=== PATIENT | female | born 2005 | race Caucasian/White ===

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

== ENCOUNTER 2024-12-29 15:18 | Observation (INO) | payer OTHER ==
[~2024-12-29] VITALS: Ht 182.9 cm; Wt 88.5 kg
[2024-12-29 15:59] LABS: BASOPHILS ABSOLUTE AUTO 0.05 K/mm3 (0.00-0.23); BASOPHILS PERCENT AUTO 1 % (0-2); EOSINOPHILS ABSOLUTE AUTO 0.17 K/mm3 (0.00-0.68); EOSINOPHILS PERCENT AUTO 2 % (0-6); Hematocrit 37.3 % (33.0-51.0); Hemoglobin 12.5 g/dL (11.5-16.0); IMMATURE GRAN ABSOLUTE AUTO 0.02 K/mm3 (0.00-0.10); IMMATURE GRAN PERCENT AUTO 0 % (0-1); LYMPHOCYTES ABSOLUTE AUTO 2.10 K/mm3 (0.84-5.20); LYMPHOCYTES PERCENT AUTO 22 % (21-46); MONOCYTES ABSOLUTE AUTO 0.79 K/mm3 (0.16-1.47); MONOCYTES PERCENT AUTO 8 % (4-13); Mean Corpuscular HGB Conc 33.5 g/dL (31.5-36.5); Mean Corpuscular Volume 89 fL (80-100); NEUTROPHILS ABSOLUTE AUTO 6.25 K/mm3 (1.96-9.15); NEUTROPHILS PERCENT AUTO 67 % (41-73); NRBC ABSOLUTE 0.00 K/mm3 (0.00-0.02); NRBC Auto 0.0 /100 WBC (0.0-0.2); Platelet Count 345 K/mm3 (150-400); RDW Coefficient Variation 12.7 % (11.7-14.2); RDW Standard Deviation 41.7 fL (35.1-46.3)
[2024-12-29 16:27] LABS: Alanine Aminotransfer (ALT/SGP 29 U/L (12-78); Albumin, Blood 4.1 g/dL (3.4-5.0); Albumin/Globulin Ratio 1.2 (0.8-1.8); Anion Gap 6 mmol/L (3-11); Aspartate Aminotrans (AST/SGOT 19 U/L (12-37); Bilirubin, Total 0.3 mg/dL (0.1-1.0); Blood Urea Nitrogen 15 mg/dL (8-24); CO2, Blood 28 mmol/L (21-32); Calcium, Blood 9.6 mg/dL (8.5-10.1); Chloride, Blood 107 mmol/L (98-108); Creatinine, Blood 0.59 mg/dL (0.40-1.00); Ethanol (Alcohol), Blood, Med <3 mg/dL; Globulin, Blood 3.5 g/dL (2.2-4.0); Glucose, Blood 93 mg/dL (70-99); Potassium, Blood 3.9 mmol/L (3.5-5.5); Sodium, Blood 137 mmol/L (136-145); Total Protein, Blood 7.6 g/dL (6.4-8.2)
[2024-12-29 16:30] LABS: Salicylate <1.7 mg/dL (2.8-20.0)
[2024-12-29 16:36] LABS: Acetaminophen, Random <2.0 ug/mL (10.0-30.0)
[2024-12-29 17:12] LABS: U Amphetamine Screen Not Detected; U Barbiturate Screen Not Detected; U Benzodiazapine Screen Not Detected; U Buprenorphine Screen Not Detected; U Cannabinoids Screen Not Detected; U Cocaine Screen Not Detected; U Methadone Screen Not Detected; U Methamphetamine Screen Not Detected; U Opiates Screen Not Detected; U Oxycodone Screen Not Detected; U Phencyclidine Screen Not Detected
[2024-12-30 08:14] VITALS: BP 138/77
[2024-12-30 11:57] LABS: Source, Urine Clean Catch
[2024-12-30 12:04] LABS: Bilirubin, Urine Neg (Neg); Glucose Qualitative, Urine Neg (Neg); Ketones, Urine Neg (Neg); Leukocyte Esterase, Urine 1+ (Neg); Protein, Urine Neg (Neg); Specific Gravity, Urine 1.010 (1.003-1.022); Urobilinogen, Urine NORM (Normal)
[2024-12-30 12:10] LABS: Color, Urine Pale Yellow (P-Yellow)
[2024-12-30 12:11] LABS: Red Blood Cells, Urine Not Seen /hpf (0-2); White Blood Cells, Urine 0-2 /hpf (0-5)
[2024-12-30] MEDS ORDERED: ESCI20 PO (14:36)
== END 2024-12-30 15:19 | disposition other institution (70) ==
LOC: ER 15:18 → EOR 15:19
PROVIDERS: ADMIT Emergency Medicine
DX: F31.2 Bipolar disorder, current episode manic severe with psychotic features (principal); R45.851 Suicidal ideations
CPT/HCPCS: 80053; 80320; 81001; 81025; 84703; 85025; 87086; 99285; A9270; G0378; G0480

== ENCOUNTER 2024-12-30 10:08 | Inpatient (IN) | payer OTHER ==
[~2024-12-30] VITALS: Ht 182.9 cm; Wt 89.5 kg
[2024-12-30 13:44] VITALS: BP 108/90
[2024-12-30 14:02] VITALS: BP 108/90
[2024-12-30] MEDS ORDERED: ESCI20 PO (14:36)
[2024-12-30] MEDS ORDERED: LORazepam 2 MG/ML 1ML Injection IM PRN (14:40)
[2024-12-30] MEDS ORDERED: FLU VACC TS2025-26(6MOS UP)/PF 45 MCG/0.5 ML SYRINGE IM SCH (14:40)
[2024-12-30] MEDS ORDERED: Aluminum Hydroxide 320MG/5ML 473 ML PO PRN (14:45)
[2024-12-30] MEDS ORDERED: DiphenhydrAMINE HCl 50 MG/ML 1ML Vial IM PRN (14:45)
[2024-12-30] MEDS ORDERED: Haloperidol Lactate Inj. 5 MG/ML Injection IM PRN (14:45)
[2024-12-30] MEDS ORDERED: Ondansetron 4 MG SoluTab MM PRN (14:50)
[2024-12-30] MEDS ORDERED: Polyethylene Glycol 3350 17 gm PO PRN (14:50)
[2024-12-30 19:31] VITALS: BP 133/88
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
--- NOTE | 2024-12-31 04:57 | NUR ---
END OF SHIFT UPDATE NO ACUTE CHANGES. PT HAS REMAINED IN BED THROUGHOUT THE NIGHT. APPEARS TO HAVE SLEPT WELL, WITH RESPIRATIONS CONFIRMED. Q15 MINUTE ROUNDING TO CONTINUE PER PT SAFETY.
[2024-12-31 08:53] LABS: CHOL/HDL RATIO 2.5; Cholesterol 167 mg/dL (50-200); HDL Cholesterol 66 mg/dL (>39); LDL/HDL RATIO 1.3; Low Density Lipoprotein Chol 88 mg/dL (0-110); Triglycerides 64 mg/dL (30-140); Very Low Density Lipoprot Chol 12 mg/dL (6-28)
[2024-12-31] MEDS ORDERED: Multivitamins 1 Tab PO SCH (09:00)
--- NOTE | 2024-12-31 09:39 | NUR ---
UPDATE PT HAD FALL TODAY AFTER GETTING BLOOD DRAWN. VSS, EUGLYCEMIC, AND A&O X4. PT HAS 1-2CM LACERATION ON LOWER RIGHT CHIN, STERI-STRIPPED AND BANDAGED BY KAILEE OWEN. IRIS FILLED OUT.
--- NOTE | 2024-12-31 17:16 | NUR ---
SHIFT SUMMARY NO ACUTE EVENTS SINCE PREVIOUS NOTE. NO MORE C/O LIGHTHEADEDNESS OR DIZZINESS, DENIES SI, HI, AVTH AT THIS TIME. ATTENDED MEALS, GROUPS, AND HAS BEEN INTERACTING W/ PEERS. CONSTRICTED/BLUNTED AFFECT AND GUARDED.
[2024-12-31 19:50] VITALS: BP 123/76
--- NOTE | 2025-01-01 04:27 | NUR ---
SHIFT SUMMARY PT IS A&OX4. SHE DENIES ANY SI, HI, OR AVTH. SHE REPORTS HER MOOD "CALMER". RATES HER DEPRESSION AT 7/10 AND ANXIETY AT 5/10. PT IS GUARDED, HAS A DEPRESSED AND BLUNTED AFFECT. SHE WAS COMPLIANT WITH MEDS, REQUESTED AND RECEIVED PRN MELATONIN. SHE WAS PRESENT IN [place]IE[place] AND HAD EVENING SNACK BEFORE GOING TO BED. Q15 MINUTE CHECKS TO CONTINUE PER PT SAFETY.
[2025-01-01 08:13] VITALS: BP 103/77
--- NOTE | 2025-01-01 12:15 | NUR ---
SHIFT ASSESSMENT: PT DENIED SI, HI AND AVH. PT REPORTED ANXIETY OF 5/10w AND PAIN TO HER CHIN 1/10w. HER MOOD WAS, "FLAT...NEUTRAL," AND HER AFFECT WAS CONGRUENT WITH HER STATED MOOD. PT REPORTED HER GOALS, "TO BE MORE ENGAGED AND TAKE MY MEDS EVERYDAY." PT HAS BEEN ATTENDING GROUPS AND HAS BEEN ON THE FRIENGE OF THE MILIEU. PT SHOWERED THIS MORNING AND IS GROOMED PRETTY WELL.
--- NOTE | 2025-01-01 16:45 | NUR ---
PT HAS BEEN VISITING WITH HER ROOMMATE AND THEY SEEM TO BE GETTING ALONG WELL. SHE HAS ATTENDED GROUPS AND HAS BEEN PLEASAN. SHE HAS A FRESH DRESSING ON HER CHIN.
[2025-01-01 19:18] VITALS: BP 135/90
--- NOTE | 2025-01-02 04:34 | NUR ---
SHIFT SUMMARY PT IS A&OX4. SHE DENIES ANY SI, HI, OR AVTH. SHE REPORTS HER MOOD "I FEEL LIKE I'M DISCONNECTED". DESCRIBES FEELING "NUMB AND BLANK". RATES HER DEPRESSION AT 6/10 AND ANXIETY AT 5/10. PT IS GUARDED, HAS A DEPRESSED AND BLUNTED AFFECT. SHE WAS COMPLIANT WITH MEDS, REQUESTED AND RECEIVED PRN MELATONIN. DENIED NEEDING ANYTHING FOR ANXIETY. SHE SPENT TIME IN HER ROOM, TALKING TO HER ROOMMATE. SHE HAD EVENING SNACK AND PARTICIPATED IN WRAP UP GROUP BEFORE GOING TO BED. Q15 MINUTE CHECKS TO CONTINUE PER PT SAFETY.
[2025-01-02 08:49] VITALS: BP 124/78
--- NOTE | 2025-01-02 16:58 | NUR ---
SHIFT SUMMARY: PT ALERT AND ORIENTED. SHE HAS A BLUNTED, DEPRESSED AFFECT. STATED, "I DON'T KNOW" WHEN ASKED ABOUT HER MOOD AND SHOOK HER HEAD "NO" WHEN ASKED ABOUT SI, HI AND AVH. SHE APPEARS WELL GROOMED AND HAS APPROPRIATE EYE CONTACT. SHE IS COMPLIANT WITH MEDICATIONS, ATTENDED GROUPS AND WAS PRESENT FOR MEALS. SHE WAS ACTIVE IN THE MILIEU, SPENT TIME IN THE DAY ROOM WATCHING TV WITH PEERS.
[2025-01-02 19:37] VITALS: BP 96/84
--- NOTE | 2025-01-03 05:02 | NUR ---
SHIFT SUMMARY 19 YEAR-OLD FEMALE PRESENTS WELL GROOMED. SHE IS ALERT AND ORIENTED. SHE SPEAKS IN A CLEAR VOICE AND IN AN APPROPRIATE VOLUME. SHE IS ABLE TO MAKE AND KEEP EYE CONTACT DURING CONVERSATIONS. AT THE TIME OF HER ASSESSMENT, SHE DESCRIBED HER MOOD FLAT. SHE ALSO DENIED SI, HI, AND AVTH AT THAT TIME. SHE ATTENDED SNACK AND DAY ROOM. SHE WAS COMPLIANT WITH CARE AND MEDICATION ADMINISTRATION. SHE DID NOT REQUEST ANY PRN MEDICATIONS THIS SHIFT.SHE CONTINUES TO BE MONITORED EVERY 15 MINUTES FOR WELLNESS AND SAFETY.
[2025-01-03 08:51] VITALS: BP 134/78
--- NOTE | 2025-01-03 17:32 | NUR ---
SHIFT SUMMARY: PT IS ALERT AND ORIENTED. SHE IS COMPLIANT WITH MEDICATIONS AND CARE. SHE DENIES SI, HI AND AVH. SHE APPEARS WELL GROOMED AND HAS APPROPRIATE EYE CONTACT. SHE HAS A BLUNTED AFFECT AND STATES THAT HER MOOD IS, "OK, SO FAR". SHE STATES THAT SHE SLEPT WELL LAST NIGHT. SHE ATTENED GROUP AND WAS PRESENT FOR MEALS. SHE SPENT MUCH OF THE DAY RESTING IN HER ROOM AND TALKING WITH PEERS. PT MONITORED WITH Q 15 MIN CHECKS FOR SAFETY PER UNIT PROTOCOL.
[2025-01-03 20:42] VITALS: BP 132/90
--- NOTE | 2025-01-04 04:27 | NUR ---
SHIFT SUMMARY 19 YEAR-OLD FEMALE PRESENTS WELL GROOMED. SHE IS ALERT AND ORIENTED. SHE SPEAKS IN A CLEAR VOICE AND IN AN APPROPRIATE VOLUME. SHE IS ABLE TO MAKE AND KEEP EYE CONTACT DURING CONVERSATIONS. AT THE TIME OF HER ASSESSMENT, SHE DESCRIBED HER MOOD ANXIOUS. SHE ALSO DENIED SI, HI, AND AVTH AT THAT TIME. SHE ATTENDED SNACK AND DAY ROOM. SHE WAS COMPLIANT WITH CARE AND MEDICATION ADMINISTRATION. SHE RECEIVED THE FOLLOWING PRN MEDICATIONS: VISTARIL FOR ANXIETY AND 2032 (MASS = 2). SHE CONTINUES TO BE MONITORED EVERY 15 MINUTES FOR WELLNESS AND SAFETY.
--- NOTE | 2025-01-04 04:27 | NUR ---
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
[2025-01-04 08:58] VITALS: BP 114/80
--- NOTE | 2025-01-04 11:03 | NUR ---
PRN ADVIL GIVEN FOR HEADACHE OF 3/10
--- NOTE | 2025-01-04 17:08 | NUR ---
PT IS ALERT AND ORIENTED TO SELF AND LOCATION. SHE DENIES SI, HI AND AVH. STATES THAT HER MOOD IS "HOPEFUL" AND SHE HAS A EUTHYMIC AFFECT. SHE IS COMPLIANT WITH MEDICATIONS AND CARE. SHE SPENT TIME THIS MORNING IN THE DAY ROOM WATCHING TV WITH PEERS AND STAFF. SHE ATTENDED GROUPS AND MEALS. SHE SPENT MUCH OF THE DAY RESTING IN HER ROOM TALKING WITH HER ROOMMATE. PT WAS MONITORED WITH Q 15 MIN CHECKS FOR SAFETY PER UNIT PROTOCOL.
[2025-01-04 21:05] VITALS: BP 134/84
--- NOTE | 2025-01-05 04:54 | NUR ---
SHIFT SUMMARY 19 YEAR-OLD FEMALE PRESENTS WELL GROOMED. SHE IS ALERT AND ORIENTED. SHE SPEAKS IN A CLEAR VOICE AND IN AN APPROPRIATE VOLUME. SHE IS ABLE TO MAKE AND KEEP EYE CONTACT DURING CONVERSATIONS. AT THE TIME OF HER ASSESSMENT, SHE DESCRIBED HER MOOD HOPEFUL. SHE ALSO DENIED SI, HI, AND AVTH AT THAT TIME. HER SAFETY PLAN WAS COMPLETED AND INVOLUTARY VERSUS VOLUNTARY ADMISSION WAS DISCUSSED, HER INVOLUTARY HOLD TOMORROW. SHE ATTENDED SNACK, BUT OPTED TO GO TO HER ROOM INSTEAD OF ATTENDING DAYROOM. SHE WAS COMPLIANT WITH CARE AND MEDICATION ADMINISTRATION. SHE RECEIVED THE FOLLOWING PRN MEDICATIONS: TRAZADONE 50MG FOR SLEEP AT 2019. SHE CONTINUES TO BE MONITORED EVERY 15 MINUTES FOR WELLNESS AND SAFETY.
--- NOTE | 2025-01-05 04:55 | NUR ---
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
[2025-01-05 08:45] VITALS: BP 131/79
--- NOTE | 2025-01-05 11:48 | NUR ---
IMPORTANT DISCHARGE INFORMATION PATIENT IS DISCHARGING TODAY. A FAMILY MEMBER IS COMING TO GET HER AROUND 1:30. ALL PARTIES VERBALIZE AN UNDERSTANDING. NEW ADDRESS: [address] [place] [id number] FOLLOW UP WITH NEW PCP DR. MOORE WITH THE [facility] 3:20PM FOLLOW UP WITH [facility] KATIE URIBE ON 01/16/25 AT 7:45AM PHARMACY: [facility] FAX
[2025-01-05] MEDS ORDERED: CELEXA40 M1 PO (11:52)
[2025-01-05] MEDS ORDERED: ABILIFY MYCITE15 M2 PO (11:53)
--- NOTE | 2025-01-05 14:04 | NUR ---
DISCHARGE PT A/O X4; PLEASANT AND COOPERATIVE WITH CARE. SHE DENIES SI, HI, AVTH. HER AFFECT IS BLUNTED BUT SHE SAYS THAT SHE FEELS MUCH BETTER AND IS LOOKING FORWARD TO LEAVING TODAY. NEW MEDICATIONS FAXED TO [facility] PER PT'S REQUEST AND FOLLOW UP APPOINTMENTS SET UP BY CM. DISCHARGE INSTRUCTIONS REVIEWED WITH THE PT AND SHE VERBALIZED UNDERSTANDING. PT VERBALIZED THAT SHE WOULD EITHER REACH OUT TO U OR PMP IF SHE HAS ANY QUESTIONS ABOUT HER CARE POST DISCHARGE. BELONGINGS RETURNED TO PT AND SHE LEFT THE UNIT AT 1345.
== END 2025-01-05 13:45 | disposition home or self-care (01) | DRG 885 ==
LOC: BHU 10:08
PROVIDERS: ADMIT Psychiatry & Neurology Psychiatry
DX: F31.2 Bipolar disorder, current episode manic severe with psychotic features (principal); R45.851 Suicidal ideations; Z28.21 Immunization not carried out because of patient refusal; Z79.899 Other long term (current) drug therapy; Z79.1 Long term (current) use of non-steroidal anti-inflammatories (NSAID); Z91.51 Personal history of suicidal behavior
CPT/HCPCS: 36415; 80061; 82947; 83036; A9270